=== PATIENT | male | born 1995 | race African-American/Black ===

== ENCOUNTER 2017-03-13 18:43 | Emergency (ER) | payer MEDICAID ==
[~2017-03-13] VITALS: Ht 190.5 cm; Wt 81.6 kg
[2017-03-13 19:05] VITALS: BP 146/67
[2017-03-13] MEDS ORDERED: metroNIDAZOLE 500 MG TABLET PO ONE (19:15)
[2017-03-13] MEDS ORDERED: AZITHROMYCIN 250 MG TABLET. PO ONE (19:15)
[2017-03-13] MEDS ORDERED: cefTRIAXone IM 250 MG VIAL IM ONE (19:15)
[2017-03-13 19:25] LABS: BILIRUBIN,URINE SMALL (NEG); GLUCOSE,URINE NEGATIVE (NEG); NITRITE,URINE NEGATIVE (NEG); PROTEIN,URINE NEGATIVE (NEG-TRACE)
[2017-03-13 19:35] LABS: BACTERIA,URINE FEW /HPF (0-FEW); RBC,URINE 0 /HPF (0-2); SQUAMOUS EPITHELIAL CELL,UR OCC /LPF; WBC,URINE >40 /HPF (0-4)
[2017-03-13] MEDS ORDERED: DOXY100T9 PO (19:56)
--- NOTE | 2017-03-13 19:57 | PHYS DOC ---
Past Medical History Past Medical History: Other Additional Past Medical Histor: R LUNG COLLAPSED Past Surgical History: Other Additional Past Surgical Histo: R LUNG SX Alcohol Use: None Drug Use: None Adult General Chief Complaint Chief Complaint: SEXUALLY TRANSMITTED DISEASE HPI HPI Patient is a 21 year old male presents the ED complaining of dysuria 3 days. Patient states he thinks he has an STD. Patient states he has multiple sexual partners. Patient states similar symptoms with other sexual partners. Complains of penile discharge. Describes the pain as burning. Rates the pain as 8 out of 10. Denies testicular swelling, fever, abdominal pain, back pain, chest pain, shortness of breath. Review of Systems Review of Systems Constitutional: Denies fever or chills [] Eyes: Denies change in visual acuity, redness, or eye pain [] HENT: Denies nasal congestion or sore throat [] Respiratory: Denies cough or shortness of breath [] Cardiovascular: No additional information not addressed in HPI [] GI: Denies abdominal pain, nausea, vomiting, bloody stools or diarrhea [] : Complains of penile discharge and dysuria. Denies hematuria [] Musculoskeletal: Denies back pain or joint pain [] Integument: Denies rash or skin lesions [] Neurologic: Denies headache, focal weakness or sensory changes [] Endocrine: Denies polyuria or polydipsia [] All other systems were reviewed and found to be within normal limits, except as documented in this note. Current Medications Current Medications Current Medications Medications (Trade) Dose Ordered Sig/Vanna Start Time Stop Time Status Last Admin Dose Admin Azithromycin (Zithromax) 1,000 mg 1X ONCE 03/13/17 19:15 03/13/17 19:16 DC 03/13/17 19:29 1,000 MG Ceftriaxone Sodium (Rocephin Im) 250 mg 1X ONCE 03/13/17 19:15 03/13/17 19:16 DC 03/13/17 19:29 250 MG Metronidazole (Flagyl) 2,000 mg 1X ONCE 03/13/17 19:15 03/13/17 19:16 DC 03/13/17 19:29 2,000 MG Allergies Allergies Allergies Coded Allergies Type Severity Reaction Last Updated Verified No Known Drug Allergies 03/13/17 No Physical Exam Physical Exam Constitutional: Well developed, well nourished, no acute distress, non-toxic appearance. [] Cardiovascular:Heart rate regular rhythm, no murmur [] Lungs & Thorax: Bilateral breath sounds clear to auscultation [] Abdomen: Bowel sounds normal, soft, no tenderness, no masses, no pulsatile masses. [] Refused exam. Skin: Warm, dry, no erythema, no rash. [] Back: No tenderness, no CVA tenderness. [] Extremities: No tenderness, no cyanosis, no clubbing, ROM intact, no edema. [] Neurologic: Alert and oriented X 3, normal motor function, normal sensory function, no focal deficits noted. [] Psychologic: Affect normal, judgement normal, mood normal. [] Current Patient Data Vital Signs Vital Signs Date Time Temp Pulse Resp B/P (MAP) Pulse Ox O2 Delivery O2 Flow Rate FiO2 03/13/17 19:05 98.1 84 18 98 Room Air 98.1 Lab Values Laboratory Tests Test 03/13/17 19:10 Urine Collection Type Void Urine Color Yellow Urine Clarity Cloudy Urine pH 7.0 Urine Specific [place] >=1.030 Urine Protein Negative mg/dL (NEG-TRACE) Urine Glucose (UA) Negative mg/dL (NEG) Urine Ketones (Stick) Trace mg/dL (NEG) Urine Blood Negative (NEG) Urine Nitrite Negative (NEG) Urine Bilirubin Small (NEG) Urine Urobilinogen Dipstick 4.0 mg/dL (0.2 mg/dL) Urine Leukocyte Esterase Large (NEG) Urine RBC 0 /HPF (0-2) Urine WBC >40 /HPF (0-4) Urine Squamous Epithelial Cells Occ /LPF Urine Bacteria Few /HPF (0-FEW) Urine Mucus Mod /LPF EKG EKG [] Radiology/Procedures Radiology/Procedures [] Course & Med Decision Making Course & Med Decision Making Pertinent Labs and Imaging studies reviewed. (See chart for details) []Will treat for possible STD with Rocephin, Flagyl and azithromycin in ED. Will discharge with doxycycline. Discussed safe sex practice. Discussed follow- up STD testing. Provided community resource list. Discussed reasons to return to the ED. Patient understands and agrees with plan. Dragon Disclaimer Dragon Disclaimer This electronic medical record was generated, in whole or in part, using a voice recognition dictation system. Departure Departure Impression: Primary Impression: Concern about STD in male without diagnosis Disposition: HOME, SELF-CARE Condition: STABLE Referrals: UNKNOWN PCP NAME (PCP) PAUL CHAMBERLAIN MD Patient Instructions: Sexually Transmitted Disease Scripts Doxycycline Hyclate (DOXYCYCLINE HYCLATE) 100 Mg Tablet.dr 1 TAB PO BID, #14 TAB Prov: MADINA HENNING 03/13/17 MADINA HENNING Mar 13, 2017 19:56
--- NOTE | 2017-03-16 15:30 | VNOTE ---
CALL BACK NOTE CALL BACK Patient is positive for gonorrhea and was treated. Spoke to patient, encouraged him to contact all his sex partners and let them know he tested positive for gonorrhea and ask them to seek treatment too. LAMAR BHAGAT APRN Mar 16, 2017 15:30
== END 2017-03-13 20:12 | disposition home or self-care (01) ==
LOC: ER 18:43
DX: Z11.3 Encounter for screening for infections with a predominantly sexual mode of transmission (principal); R30.0 Dysuria; R36.9 Urethral discharge, unspecified
CPT/HCPCS: 81001; 87491; 87591; 96372; 99284; J0696; Q0144